=== PATIENT | female | born 1960 | race Caucasian/White ===

== ENCOUNTER 2022-03-26 11:13 | Outpatient (REF) | payer OTHER, SELFPAY ==
[2022-03-26 13:06] LABS: SARS PCR* Negative SARS-CoV-2 (Negative)
== END 2022-03-26 11:14 | disposition home or self-care (01) ==
LOC: NPINS 11:13
PROVIDERS: Visit Provider Podiatrist
DX: Z20.822 Contact with and (suspected) exposure to COVID-19 (principal)
CPT/HCPCS: 87635

== ENCOUNTER 2022-03-29 10:12 | Day surgery (SDC) | payer OTHER, SELFPAY ==
[2022-03-29] VITALS (12 sets, daily range): BP systolic 113–157; BP diastolic 59–92; PULSE 60–78; RESP 14–16; TEMP 36.2–36.9; O2SAT 92–100; BMI 31.6
[2022-03-29] MEDS: MIDAZOLAM HCL 1 MG/ML inj IVP (10:27)
[2022-03-29] MEDS: LACTATED RINGERS 1000 ML 1,000 ML 100 ML IV ×2 (10:30→16:19)
[2022-03-29] MEDS: SODIUM CHLORIDE 0.9 % (FLUSH) 10 ML SYRINGE IVF (10:54)
[2022-03-29] MEDS: ETHYL CHLORIDE 1 APPLICATION 1 APPLIC TOPICAL (10:54)
--- NOTE | 2022-03-29 11:53 | CRLHL7_ITS ---
For Patients: As a result of the Cures Act, medical imaging exams and procedure reports are released immediately into your electronic medical record. You may view this report before your referring provider. If you have questions, please contact your health care provider. Indication: Intra-op Right Lapidus Bunionectomy Technique: Four fluoroscopic images of the right foot. Fluoroscopic time 40.9 seconds. IMPRESSION: Fluoroscopic guidance for fusion across the 1st, 2nd and 3rd tarsometatarsal joints and distal 1st metatarsal bunionectomy. Dictated by Mark Amezcua MD @ 03/30/2022 9:37:10 AM (Electronically Signed)
--- NOTE | 2022-03-29 12:16 | SUR.PREOP ---
TIME?OUT:?1223 PT/RNmorsamuel /MDA?VERIFICATION?OF?SURGICAL?SITEright foot,?PROCEDURE right pop block,?AND?CONSENT OBTAINED?PRIOR?TO?INVASIVE?PROCEDURE.
--- NOTE | 2022-03-29 12:35 | P.NB_ITS ---
Nerve Block Nerve Block Time Seen by Provider: 12:36 Date Seen: 03/29/22 Type of block requested by surgeon for post-operative analgesia: popliteal Side: right Time out performed: Yes Verification of patient name: Yes Verification of date of : Yes Site marking: site marked Name of person performing procedure: Tommie Continuous monitoring Was continuous monitoring of O2 sat, B/P, nurse monitoring, recorded every 15 minutes?: Yes Procedure Checklist: sterile prep, needles and gloves Ultrasound guided. Images saved: Yes Medications given in 5ml increments after negative aspiration: Ropivicaine %: 0.5 mL: 25 Needle gauge: 22 Patient tolerated procedure well: Yes Additional comments: Needle noted adjacent to nerve Block Charges Block Charge (with Pro Fee): Sciatic Nerve Use of Ultrasound Machine for Block: Yes- US Guidance/pain block
--- NOTE | 2022-03-29 12:36 | P.NB_ITS ---
Nerve Block Nerve Block Time Seen by Provider: 12:37 Date Seen: 03/29/22 Type of block requested by surgeon for post-operative analgesia: adductor canal Side: right Time out performed: Yes Verification of patient name: Yes Verification of date of : Yes Site marking: site marked Name of person performing procedure: Tommie Continuous monitoring Was continuous monitoring of O2 sat, B/P, playground monitor, recorded every 15 minutes?: Yes Procedure Checklist: sterile prep, needles and gloves Ultrasound guided. Images saved: Yes Medications given in 5ml increments after negative aspiration: Ropivicaine %: 0.5 mL: 20 Needle gauge: 20 Patient tolerated procedure well: Yes Additional comments: Needle noted adjacent to nerve Block Charges Block Charge (with Pro Fee): Femoral Nerve Use of Ultrasound Machine for Block: Yes- US Guidance/pain block
[2022-03-29] MEDS: BUPIVACAINE 0.5% 30 ML INJECTION (12:48)
[2022-03-29] MEDS: CEFAZOLIN 2 GM INJ IVP (12:54)
--- NOTE | 2022-03-29 14:59 | W.ANESCHARGE ---
Anesthesia Charges Start Date/Time Anesthesia Start Date: 03/29/22 Anesthesia Start Time: 12:37 Stop Date/Time Anesthesia Stop Date: 03/29/22 Summary Emergency: No
--- NOTE | 2022-03-29 16:40 | P.GSOP_ITS ---
Operative Note Date of procedure: 03/29/22 Type of Procedure: 1. Lapidus bunionectomy right foot 2 2nd and 3rd metatarsal cuneiform joint fusion right foot 3. 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 The operative site was marked and the patient was brought to the operating room and placed on the operating table in supine position.? Care was taken to pad the patient's pressure points.?? The patient was then [intubated/given sedation] by anesthesia.?? The patient had a preoperative popliteal and adductor block by Anesthesia. An additional 10 mL of 0.5% Marcaine plain were injected along the dorsal medial foot in the area of the saphenous nerve. The operative site was then prepped and draped in the usual sterile fashion.? A time-out was then performed. The right foot was exsanguinated and the tourniquet inflated. ? Linear incisions made on the medial aspect of the right 1st metatarsal phalangeal joint. Incision was carried down through skin subcutaneous tissues. Blunt dissection was taken down to the capsule and neurovascular structures carefully retracted dorsal and plantar. An L-shaped capsular incision was made and the tissue reflected away from the 1st metatarsal head. Second incision is made over the 1st intermetatarsal space to the level of the metatarsal head. Blunt dissection was carried into the interspace. Standard lateral release was performed with the plantar lateral joint capsule, dorsal fibular sesamoidal ligament and adductor tendon released. Third incision was made over the dorsal medial aspect of the 1st metatarsal cuneiform joint. Incision was carried down through skin subcutaneous tissues. Blunt dissection was carried down to the periosteum and capsule. The dorsal extensor tendons retracted laterally. Transverse incision was made through the 1st metatarsal cuneiform joint capsule. Plantar adhesions were released with a [place]. Joint construction equipment technician was applied dorsally and the joint distracted. Using combination of an osteotome and curette the cartilage was removed from the adjacent fusion surfaces. Bleeding subchondral bone was encountered. And then removed the joint distractor and held the 1st metatarsal reduced in all planes and C-arm confirmed excellent correction. Small amount of reciprocal planing needed at the fusion site which was performed with a sagittal saw. I thoroughly irrigated normal sterile saline. The opposing joint surfaces were then fenestrated with a drill bit and fish-scaled with an osteotome. The Existence Before Essence LapiFuse jig was then applied and the 1st metatarsal was again reduced into normal alignment in all 3 planes and then held in place by the jig. Guide pin was placed from the plantar medial 1st metatarsal across the fusion site into the middle cuneiform avoiding the 2nd metatarsal cuneiform joint. Cannulated screw was then inserted using standard technique and excellent compression was noted across the fusion site. Dorsal medial 5 hole plate was then applied with 2 locking screws distal and 2 locking screws proximal. Wound was thoroughly irrigated normal sterile saline. C-arm confirmed excellent correction and position of the hardware. Subcutaneous tissues reapproximated with 4-0 Monocryl and the skin closed with 4-0 Prolene to the proximal incision and the incision over the 2nd intermetatarsal space. Combination of a sagittal saw and a rotary bur was used to remodel the 1st metatarsal head. C-arm confirmed appearance. After thorough irrigation redundant capsular tissue was excised and the joint capsule closed with 3-0 Vicryl. Subcutaneous tissues reapproximated 4-0 Monocryl and skin closed with 4-0 Prolene. Linear incision was then made over the dorsal aspect between the 2nd and 3rd metatarsal cuneiform joints. Incision was carried down through skin subcutaneous tissues. Great care was taken to avoid neurovascular structures and they were carefully retracted. The fascia was released and the joint capsule of the 2nd and 3rd metatarsal cuneiform joints was exposed. Linear incision was made between them and reflected medially and laterally exposing the joints. There was significant bony spurring dorsally and complete absence of cartilage within both joints. An 8 mm trephined was then used to remove 1/2 of each side of the 2nd metatarsal cuneiform joint and 3rd metatarsal cuneiform joint. With both joints now resected we utilized C-arm to identify the posterior body of the calcaneus. 2 cm incision was made and blunt dissection was carried down to the cortical bone. A 10 mm trephined was used to make a through and through resection removing entire dowel of bone. The dowel was split into 2 equal 15 mm pieces. One dowel was then inserted into the 2nd metatarsocuneiform joint and one dowel was inserted into the 3rd metatarsal cuneiform joint. Once in place a 20 mm x 20 mm [employer] staple was inserted using standard technique. C-arm images confirmed excellent position. Tourniquet was then released at this point. Minimal bleeding noted. The calcaneus donor site was backfilled and packed with cancellous bone graft croutons. Incision was closed with the calcaneus with 4-0 Monocryl and 4-0 Prolene. The fascia was closed on the dorsal wound with 4-0 Vicryl in the subcutaneous tissues reapproximated with 4-0 Monocryl and skin closed with 4-0 Prolene. Sterile dressing was then applied and she was placed in a well-padded CAM boot. ? The patient was then woken and transported to the recovery area in stable condition. The patient tolerated the procedure well. She is given both written and verbal postoperative instructions. She is nonweightbearing. She is given oxycodone for pain. She will follow up in 2 days. Findings: Hemostasis: Ankle pneumatic tourniquet at 250 mm Hg Complications: None apparent Implants: Existence Before Essence Lapidus plate x1, 3.0 mm locking screws x4, cannulated 4.0 mm screw x1, 20 mm by 20 mm staple x2. 5cc allograft bone. Anesthesia: MAC and regional Surgeon: Charlie Gallo DPM Estimated blood loss (mL): 20 Condition: stable Disposition: same day
--- NOTE | 2022-03-29 18:09 | W.ANESCHARGE ---
Anesthesia Charges Start Date/Time Anesthesia Start Date: 03/29/22 Anesthesia Start Time: 12:37 Stop Date/Time Anesthesia Stop Date: 03/29/22 Anesthesia Stop Time: 16:19 Summary Emergency: No
== END 2022-03-29 17:22 | disposition home or self-care (01) ==
PROVIDERS: PCP Physician Assistant; Visit Provider Podiatrist
PROC: (CPT 28292; principal; 2022-03-29 11:30)
DX: M20.11 Hallux valgus (acquired), right foot (principal); M21.611 Bunion of right foot; M19.071 Primary osteoarthritis, right ankle and foot
CPT/HCPCS: 28297; 28122 ×2; 01480; 64445; 64447; 73620; 76000; 76942; C1713; J0690; J1100; J2250; J2405; J2704; J2795; J3490; J7120

== ENCOUNTER 2024-12-18 14:14 | Outpatient (CLI) | payer OTHER, SELFPAY | END 2024-12-18 14:15 | disposition home or self-care (01) | LOC: INJ CL 14:16 | PROVIDERS: Visit Provider Family Medicine | DX: M54.16 Radiculopathy, lumbar region (principal); M48.062 Spinal stenosis, lumbar region with neurogenic claudication; M51.369 Other intervertebral disc degeneration, lumbar region without mention of lumbar back pain or lower extremity pain | CPT/HCPCS: 62323; J0702; Q9966 ==